=== PATIENT | female | born 1980 | race American Indian/Alaskan Native ===

== ENCOUNTER 2018-08-20 17:11 | Emergency (ER) | payer SELFPAY ==
[2018-08-20 18:01] LABS: Bacteria,Urine 3+ /HPF (Negative); Bilirubin,Urine NEG (Negative); Blood,Urine NEG (Negative); Color,Urine Yellow (Yellow); Mucus,Urine FEW /HPF; Protein,Urine <15 mg/dL mg/dL (Negative); Urobilinogen,Urine < 2.0 mg/dL (<2.0)
--- NOTE | 2018-08-20 19:06 | Emergency Department Report ---
Chief Complaint: Urogenital-Female Stated Complaint: VOMIT/STOMACH PAIN Time Seen by Provider: 08/20/18 18:50 - HPI History of Present Illness: preg ? age leaking urine no care - Exam Vital Signs: Vital Signs 08/20/18 17:18 Temperature 98.1 F Pulse Rate 95 H Respiratory 16 Rate Blood Pressure 132/85 O2 Sat by Pulse 98 Oximetry MSE screening note: Focused history and physical exam performed. Due to findings the following was ordered: ED Disposition for MSE Condition: Stable Referrals: PRIMARY CARE [Primary Care Provider] - 3-5 Days
--- NOTE | 2018-08-20 20:56 | Ultrasound Report ---
FINAL REPORT PROCEDURE: Obstetrical ultrasound. TECHNIQUE: Real-time transabdominal sonography of the uterus, placenta, amniotic fluid, adnexa, and fetus was performed with image documentation. Measurements were obtained to determine age/size. M-mode Doppler was used to document heartbeat. CPT 51035 HISTORY: , cramping. COMPARISON: No prior studies are available for comparison. FINDINGS: There is a single viable fetus in cephalic presentation. Cardiac activity is documented at 135 beats per minute. The cervix is closed and measures 4.3 centimeters in length. There are no congenital anomalies identified. The spine was not optimally visualized due to the position. The amniotic fluid volume appears normal. The placenta is anterior in location, grade 0, with no evidence of placenta previa. The measured parameters are as follows: Biparietal diameter 5.8 centimeters, head circumference 21.2 centimeters, abdominal circumference 18.3 centimeters, femur length 4.0 centimeters. The calculated menstrual age is 23 weeks 2 days. The estimated date of confinement is 12/15/2018. The estimated weight is currently 562 grams. IMPRESSION: Single viable fetus in cephalic presentation with a menstrual age of 23 weeks 2 days.
[2018-08-20 21:06] LABS: Hematocrit 35.4 % (30.3-42.9); Mean Corpuscular HGB Conc 34 % (30-34); Mean Corpuscular Hemoglobin 34 pg (28-32); Mean Corpuscular Volume 101 fl (79-97); Platelet Count 369 K/mm3 (140-440); Red Blood Count 3.52 M/mm3 (3.65-5.03); Red Cell Distribution Width 16.6 % (13.2-15.2)
--- NOTE | 2018-08-20 21:09 | Emergency Department Report ---
ED General Adult HPI - General Chief complaint: Urogenital-Female Stated complaint: VOMIT/STOMACH PAIN Time Seen by Provider: 08/20/18 18:50 Source: patient Mode of arrival: Ambulatory Limitations: No Limitations - History of Present Illness Initial comments: 38-year-old -[place] female 5 para 2 states that she feels full in her pelvis and her urine is orange and smells. Patient states that she is but not sure how far she is. Patient reports her last OB visit was May 02 and at that time she was 6 weeks . Patient reports she is currently homeless and has no OB M.D. Patient has a past medical history of sickle cell and eye surgery. She has no known drug allergies currently takes no medications on a daily basis. -: days(s) (3) Improves with: none Worsens with: none Associated Symptoms: denies other symptoms. denies: fever/chills, nausea/ vomiting - Related Data Previous Rx's Medication Instructions Recorded Last Taken Type Nitrofurantoin Monohyd/M-Cryst 100 mg PO BID #20 capsule 08/20/18 Unknown Rx [Macrobid 100 mg Capsule] Allergies Allergy/AdvReac Type Severity Reaction Status Date / Time No Known Allergies Allergy Unverified 08/20/18 17:29 ED Review of Systems ROS: Stated complaint: VOMIT/STOMACH PAIN Other details as noted in HPI Comment: All other systems reviewed and negative Constitutional: denies: chills, fever Eyes: denies: eye pain, eye discharge, vision change ENT: denies: ear pain, throat pain Genitourinary: dysuria, other (urine is orange and has this male) ED Past Medical Hx - Past Medical History Hx Sickle Cell Disease: Yes - Surgical History Past Surgical History?: Yes Additional Surgical History: surgery for a retinal detachment - Social History Smoking Status: Never Smoker Substance Use Type: None - Medications Home Medications: Home Medications Medication Instructions Recorded Confirmed Last Taken Type Nitrofurantoin Monohyd/M-Cryst 100 mg PO BID #20 capsule 08/20/18 Unknown Rx [Macrobid 100 mg Capsule] ED Physical Exam - General Limitations: No Limitations General appearance: alert, in no apparent distress - Head Head exam: Present: atraumatic, normocephalic - ENT ENT exam: Present: mucous membranes moist - Respiratory Respiratory exam: Present: normal lung sounds bilaterally. Absent: respiratory distress - Cardiovascular Cardiovascular Exam: Present: regular rate, normal rhythm. Absent: systolic murmur, diastolic murmur, rubs, gallop - GI/Abdominal GI/Abdominal exam: Present: soft, distended (), normal bowel sounds. Absent: tenderness - Back Exam Back exam: Present: normal inspection, full ROM - Neurological Exam Neurological exam: Present: alert, oriented X3 - Psychiatric Psychiatric exam: Present: normal affect, normal mood - Skin Skin exam: Present: warm, dry, intact, normal color. Absent: rash ED Course Vital Signs 08/20/18 17:18 Temperature 98.1 F Pulse Rate 95 H Respiratory 16 Rate Blood Pressure 132/85 O2 Sat by Pulse 98 Oximetry ED Medical Decision Making - Lab Data Result diagrams: 08/20/18 20:51 08/20/18 20:51 - Radiology Data Radiology results: report reviewed FINDINGS: There is a single viable fetus in cephalic presentation. Cardiac activity is documented at 135 beats per minute. The cervix is closed and measures 4.3 centimeters in length. There are no congenital anomalies identified. The spine was not optimally visualized due to the position. The amniotic fluid volume appears normal. The placenta is anterior in location, grade 0, with no evidence of placenta previa. The measured parameters are as follows: Biparietal diameter 5.8 centimeters, head circumference 21.2 centimeters, abdominal circumference 18.3 centimeters, femur length 4.0 centimeters. The calculated menstrual age is 23 weeks 2 days. The estimated date of confinement is 12/15/2018. The estimated weight is currently 562 grams. IMPRESSION: Single viable fetus in cephalic presentation with a menstrual age of 23 weeks 2 days. Transcribed By: MRM Dictated By: STACY REYES MD Electronically Authenticated By: STACY REYES MD Signed Date/Time: 08/20/182055 DD/ 55 TD/TT: 08/20/182055 - Medical Decision Making Patient has been evaluated by this provider as well as Dr. Higgins. Patient unsure shows a urinary tract infection. Rocephin given to start treatment for urinary tract Patient will be discharged on Macrobid 100 mg twice a day for 10 days Discussed with patient she needs to have close follow-up with [facility]. I discussed the patient that [facility] will be able to evaluate her due to her . Information is given to patient to follow up with [facility]. Critical care attestation.: If time is entered above; I have spent that time in minutes in the direct care of this critically ill patient, excluding procedure time. ED Disposition Clinical Impression: UTI (urinary tract infection) during Qualifiers: Trimester: third trimester Qualified Code(s): O23.43 - Unspecified infection of urinary tract in , third trimester Disposition: TO HOME OR SELFCARE Is pt being admited?: No Does the pt Need Aspirin: No Condition: Stable Instructions: Urinary Tract Infection in Women (ED) Additional Instructions: Complete antibiotics as prescribed. Tylenol for pain management. You needs to follow up with [facility] in 2 days. Prescriptions: Nitrofurantoin Monohyd/M-Cryst [Macrobid 100 mg Capsule] 100 mg PO BID #20 capsule Referrals: PRIMARY CAREMD [Primary Care Provider] - 3-[address] [facility] [Provider Group] - 3-5 Days
[2018-08-20] MEDS ORDERED: XYLOCAINE 1% MPF 5 mL INFILTRATI ONE (21:12)
[2018-08-20] MEDS ORDERED: ROCEPHIN IM ONE (21:12)
[2018-08-20 21:25] LABS: Alanine Aminotransferase 157 units/L (7-56); Albumin 3.3 g/dL (3.9-5); BUN/Creatinine Ratio 13; Blood Urea Nitrogen 4 mg/dL (7-17); Calcium 8.6 mg/dL (8.4-10.2); Hemolysis Index 72
--- NOTE | 2018-08-20 21:31 | Emergency Department Report ---
Blank Doc - Documentation Documentation: ED M.D. [id number] note I've seen the patient [id number] and discussed plan of care with patient and mid-level provider Noel. Agree with plan of care. Patient to have prompt follow-up for reevaluation
[2018-08-20 22:04] LABS: Band Neutrophils # (Manual) 0.4 K/mm3; Basophils % (Manual) 0 % (0.0-1.8); Eosinophils % (Manual) 0 % (0.0-4.3); Total Cells Counted 100
[2018-08-20 22:05] LABS: Anisocytosis 1+; Poikilocytosis 1+; Target Cells 1+
[2018-08-20 22:06] LABS: Giant Platelets Few; Platelet Estimate Consistent w Auto
[2018-08-20 22:09] VITALS: BP 128/74
== END 2018-08-20 22:21 | disposition home or self-care (01) ==
LOC: ED 17:11
DX: O23.42 Unspecified infection of urinary tract in pregnancy, second trimester (principal); Z3A.23 23 weeks gestation of pregnancy
CPT/HCPCS: 36415; 76805; 80053; 81001; 84702; 85007; 85025; 86900; 86901; 96372; 99284; J0696